=== PATIENT | female | born 1945 | race Caucasian/White ===

== ENCOUNTER 2018-12-09 16:25 | Emergency (ER) | payer MEDICARE, BC ==
[~2018-12-09] VITALS: Ht 167.6 cm; Wt 70.9 kg
[2018-12-09 16:43] VITALS: BP 127/73; Ht 167.6 cm; Wt 70.9 kg
[2018-12-09] MEDS ORDERED: [UNRECOGNIZED DRUG - OTHER] (16:46)
[2018-12-09] MEDS ORDERED: XANAX0.5 MG (16:47)
[2018-12-09] MEDS ORDERED: NIASPAN500 MG PO (16:48)
[2018-12-09] MEDS ORDERED: REMERON15 MG PO (16:48)
[2018-12-09] MEDS ORDERED: VITAMIN B-121000 MCG PO (16:49)
[2018-12-09] MEDS ORDERED: COZAAR50 MG (16:49)
[2018-12-09] MEDS ORDERED: VITAMIN D31000 UNIT PO ×2 (16:49→16:51)
[2018-12-09] MEDS ORDERED: ASCORBIC ACID500 MG PO (16:50)
[2018-12-09] MEDS ORDERED: BAYER CHEWABLE81 MG PO (16:50)
[2018-12-09] MEDS ORDERED: PROZAC20 MG PO (16:51)
[2018-12-09] MEDS ORDERED: MELATONIN10 M1 PO (16:51)
[2018-12-09 17:48] LABS: BASOPHILS 0.5 % (0-2); EOSINOPHILS 2.3 % (0-7); HEMATOCRIT 37.6 % (36.0-48.0); HEMOGLOBIN 12.2 g/dL (12-16); IMMATURE GRANULOCYTES 0.2 % (0-5); LYMPHOCYTES 28.3 % (15-50); MCH 29.4 pg (26.0-34.0); MCHC 32.4 g/dL (31.0-37.0); MCV 90.6 fL (80.0-100.0); MEAN PLATELET VOLUME 9.8 fL (7.4-10.4); MONOCYTES 9.8 % (2-11); NEUTROPHILS 58.9 % (40-80); RBC 4.15 10x6/uL (4.00-5.40); RDW 14.7 % (11.5-14.5); WBC 8.3 10x3/uL (4.8-10.8)
[2018-12-09 17:59] LABS: PLATELET COUNT 258 10x3/uL (130-400)
[2018-12-09 18:18] LABS: ALBUMIN 3.3 g/dL (3.4-5.0); ALKALINE PHOSPHATASE 78 U/L (46-116); ALT (SGPT) 22 U/L (10-68); BILIRUBIN - TOTAL 0.25 mg/dL (0.2-1.3); CALC OSMOLALITY 286 mosm/kg (275-300); CALCIUM 8.5 mg/dL (8.5-10.1); CARBON DIOXIDE 32.1 mmol/L (21.0-32.0); CHLORIDE - SERUM 104 mmol/L (98-107); CREATININE - SERUM 1.1 mg/dL (0.6-1.3); GLUCOSE 91 mg/dL (74-106); POTASSIUM - SERUM 4.3 mmol/L (3.5-5.1); PROTEIN - SERUM 6.8 g/dL (6.4-8.2); SODIUM 142 mmol/L (136-145); UREA NITROGEN 25 mg/dL (7-18); eGFR NON AFRICAN AMERICAN 51 mL/min (90-120)
[2018-12-09 18:28] LABS: CREATINE KINASE 25 UL (21-215); MAGNESIUM - SERUM 2.1 mg/dL (1.8-2.4); THYROID STIMULATING HORMONE 1.84 uIU/mL (0.36-3.74); TROPONIN-I < 0.017 ng/mL (0.000-0.060)
[2018-12-09 19:12] LABS: APPEARANCE CLEAR (CLEAR); BILIRUBIN NEGATIVE (NEGATIVE); COLOR YELLOW (YELLOW); GLUCOSE NEGATIVE (NEGATIVE); KETONE NEGATIVE (NEGATIVE); NITRITE NEGATIVE (NEGATIVE); PROTEIN NEGATIVE (NEGATIVE); UROBILINOGEN NORMAL (NORMAL)
== END 2018-12-09 18:58 | disposition home or self-care (01) ==
LOC: D.ER 16:25
PROVIDERS: Emergency Medicine
DX: R53.1 Weakness (principal); E86.0 Dehydration

== ENCOUNTER 2020-02-05 18:56 | Emergency (ER) | payer MEDICARE, BC ==
[~2020-02-05] VITALS: Ht 167.6 cm; Wt 75.0 kg
[~2020-02-05 18:56] MED LIST: ASCORBIC ACID500 MG PO; BAYER CHEWABLE81 MG PO; COZAAR50 MG; MELATONIN10 M1 PO; NIASPAN500 MG PO; PROZAC20 MG PO; REMERON15 MG PO; VITAMIN B-121000 MCG PO; VITAMIN D31000 UNIT PO; XANAX0.5 MG; [UNRECOGNIZED DRUG - OTHER]
[2020-02-05 18:58] VITALS: Ht 167.6 cm; Wt 75.0 kg
[2020-02-05 19:58] LABS: BASOPHILS 0.3 % (0-2); EOSINOPHILS 1.6 % (0-7); HEMATOCRIT 40.1 % (36.0-48.0); HEMOGLOBIN 13.2 g/dL (12-16); IMMATURE GRANULOCYTES 0.3 % (0-5); LYMPHOCYTES 38.9 % (15-50); MCH 30.1 pg (26.0-34.0); MCHC 32.9 g/dL (31.0-37.0); MCV 91.3 fL (80.0-100.0); MEAN PLATELET VOLUME 9.9 fL (7.4-10.4); MONOCYTES 9.3 % (2-11); NEUTROPHILS 49.6 % (40-80); PLATELET COUNT 227 10x3/uL (130-400); RBC 4.39 10x6/uL (4.00-5.40); WBC 6.4 10x3/uL (4.8-10.8)
[2020-02-05 20:00] LABS: BILIRUBIN NEGATIVE (NEGATIVE); GLUCOSE NEGATIVE (NEGATIVE); KETONE NEGATIVE (NEGATIVE); NITRITE NEGATIVE (NEGATIVE); SPECIFIC GRAVITY 1.015 (1.005-1.020); UROBILINOGEN NORMAL (NORMAL)
[2020-02-05 20:08] LABS: APTT 25.4 SECONDS (22.8-39.4); INR 0.95 (0.85-1.17); PROTIME 12.6 SECONDS (11.6-15.0)
[2020-02-05 20:10] LABS: ANION GAP 16.7 mmol/L (8-16); CALCIUM 9.6 mg/dL (8.5-10.1); CARBON DIOXIDE 21.7 mmol/L (21.0-32.0); CREATININE - SERUM 1.5 mg/dL (0.6-1.3); POTASSIUM - SERUM 4.4 mmol/L (3.5-5.1)
[2020-02-05 20:15] LABS: ALBUMIN 4.1 g/dL (3.4-5.0); BILIRUBIN - TOTAL 0.36 mg/dL (0.2-1.3); PROTEIN - SERUM 7.7 g/dL (6.4-8.2)
[2020-02-05] MEDS ORDERED: ZANAFLEX4 MG PO (21:31)
[2020-02-05 22:02] VITALS: BP 132/66
== END 2020-02-05 22:22 | disposition home or self-care (01) ==
LOC: D.ER 18:56
PROVIDERS: Emergency Medicine
DX: R25.2 Cramp and spasm (principal); M54.9 Dorsalgia, unspecified; M54.2 Cervicalgia; Z86.73 Personal history of transient ischemic attack (TIA), and cerebral infarction without residual deficits; I10 Essential (primary) hypertension; R51 Headache; G20 Parkinson's disease

== ENCOUNTER 2020-05-16 20:08 | Emergency (ER) | payer MEDICARE, BC ==
[~2020-05-16] VITALS: Ht 167.6 cm; Wt 74.8 kg
[~2020-05-16 20:08] MED LIST changes: +ZANAFLEX4 MG PO
[2020-05-16 20:17] VITALS: BP 130/78; Ht 167.6 cm; Wt 74.8 kg
[2020-05-16] MEDS ORDERED: ULTRAM50 MG PO (21:27)
== END 2020-05-16 22:17 | disposition home or self-care (01) ==
LOC: D.ER 20:08
DX: S46.912A Strain of unspecified muscle, fascia and tendon at shoulder and upper arm level, left arm, initial encounter (principal); M25.512 Pain in left shoulder; Z86.73 Personal history of transient ischemic attack (TIA), and cerebral infarction without residual deficits; G20 Parkinson's disease; I10 Essential (primary) hypertension; E03.9 Hypothyroidism, unspecified; E78.5 Hyperlipidemia, unspecified; X50.9XXA Other and unspecified overexertion or strenuous movements or postures, initial encounter; Y93.9 Activity, unspecified; Y92.9 Unspecified place or not applicable